=== PATIENT | female | born 1980 | race Caucasian/White ===

== ENCOUNTER 2020-01-25 10:00 | Observation (INO) | payer OTHER ==
[~2020-01-25] VITALS: Ht 169 cm; Wt 74.0 kg
[2020-01-25 10:35] VITALS: BP 100/62
[2020-01-25] MEDS ORDERED: PREN-217 PO (10:37)
== END 2020-01-25 11:55 | disposition home or self-care (01) ==
LOC: 4S 10:00
PROVIDERS: ADMIT Obstetrics & Gynecology; ATTEND Obstetrics & Gynecology
DX: O36.5930 Maternal care for other known or suspected poor fetal growth, third trimester, not applicable or unspecified (principal); O09.513 Supervision of elderly primigravida, third trimester; Z3A.37 37 weeks gestation of pregnancy
CPT/HCPCS: 59025; 99219

== ENCOUNTER 2020-02-04 14:00 | Observation (INO) | payer OTHER ==
[~2020-02-04] VITALS: Ht 167.6 cm; Wt 74.8 kg
[~2020-02-04 14:00] MED LIST: PREN-217 PO
[2020-02-04 14:33] VITALS: BP 102/64
[2020-02-04 17:55] LABS: COVID AG,FIA SOURCE NASOPHARYNGEAL
== END 2020-02-05 12:21 | disposition home or self-care (01) ==
LOC: 4S 14:00
PROVIDERS: ADMIT Obstetrics & Gynecology; ATTEND Obstetrics & Gynecology
DX: O09.513 Supervision of elderly primigravida, third trimester (principal); Z20.828 Contact with and (suspected) exposure to other viral communicable diseases; Z3A.39 39 weeks gestation of pregnancy
CPT/HCPCS: 59025; 87426; 99219

== ENCOUNTER 2020-02-08 12:10 | Inpatient (IN) | payer OTHER ==
[~2020-02-08] VITALS: Ht 169 cm; Wt 74.8 kg
[2020-02-08] MEDS ORDERED: METOCLOPRAMIDE HCL 5 MG/ML 2 ML VIAL IVP PRN (12:45)
[2020-02-08] MEDS ORDERED: METHYLERGONOVINE MALEATE 0.2 MG/ML VIAL IM PRN (12:45)
[2020-02-08] MEDS ORDERED: RINGERS SOLUTION,LACTATED 1,000 ML IV PRN (12:45)
[2020-02-08] MEDS ORDERED: CITRIC ACID/SODIUM CITRATE 30 ML SOLUTION UDCUP PO PRN (12:45)
[2020-02-08] MEDS ORDERED: FentaNYL CITRATE-PF 100 MCG/2 ML VIAL IVP PRN (12:45)
[2020-02-08] MEDS ORDERED: OXYTOCIN 30 UNITS/LACT RINGERS 500 ML IV ONE (12:45)
[2020-02-08] MEDS ORDERED: LIDOCAINE/PF 1% 30 ML VIAL INJ PRN (12:45)
[2020-02-08] MEDS: MISOPROSTOL 50 MCG TABLET PO SCH ×3 (13:28→23:49)
[2020-02-08 13:42] VITALS: BP 110/75
[2020-02-08] MEDS ORDERED: AMPICILLIN SODIUM 2 GM/NS 100 ML IV ONE (13:45)
[2020-02-08 14:28] LABS: BASOPHILS % (AUTO) 0.3 % (0.0-2.0); EOSINOPHILS % (AUTO) 0.4 % (1.0-6.0); HEMATOCRIT 39.8 % (36-46); HEMOGLOBIN 13.7 g/dL (12.0-16.0); MEAN CORPUSCULAR HGB CONC 34.3 G/dL (31.0-37.0); MEAN CORPUSCULAR VOLUME 102 fL (80-100); MONOCYTES # (AUTO) 0.9 K/uL (0.1-1.0); MONOCYTES % (AUTO) 11.4 % (2.0-9.0); NEUTROPHILS # (AUTO) 5.9 K/uL (1.8-7.7); NEUTROPHILS % (AUTO) 74.9 % (40.0-70.0); PLATELET COUNT (AUTO)-OB 229 K/uL (150-450); RED BLOOD CELL COUNT(AUTO) 3.91 MIL/uL (4.00-5.20); RED CELL DISTRIBUTION WIDTH 14.6 % (11.5-14.5)
[2020-02-08] MEDS: RINGERS SOLUTION,LACTATED 1,000 ML IV SCH ×2 (15:00→18:28)
[2020-02-08 15:01] LABS: COVID AG,FIA SOURCE NASOPHARYNGEAL
[2020-02-08] MEDS: AMPICILLIN SODIUM 1 GM/NS 50 ML IV SCH ×2 (19:00→22:55)
[2020-02-08] MEDS ORDERED: OXYGEN THERAPY IH SCH (20:00)
[2020-02-09] MEDS: AMPICILLIN SODIUM 1 GM/NS 50 ML IV SCH ×2 (03:16→07:20)
[2020-02-09] MEDS ORDERED: OXYTOCIN 30 UNITS/LACT RINGERS 500 ML IV PRN (04:30)
[2020-02-09] MEDS: RINGERS SOLUTION,LACTATED 1,000 ML IV SCH (11:02)
[2020-02-09] MEDS ORDERED: SODIUM CHLORIDE 0.9% 1,000 ML ONE (11:27)
[2020-02-09] MEDS ORDERED: RINGERS SOLUTION,LACTATED 1,000 ML IV ONE (11:27)
[2020-02-09] MEDS ORDERED: BUPIVACAINE HCL/DEX-WATER/PF 0.75% 2 ML AMP ONE (11:27)
[2020-02-09] MEDS ORDERED: MORPHINE SULFATE/PF 0.5 MG/ML 10 ML AMP IVP ONE (12:00)
[2020-02-09] MEDS ORDERED: 0.9% SODIUM CHLORIDE 10 ML VIAL IVP ONE (12:00)
[2020-02-09] MEDS ORDERED: EPHEDrine SULFATE 50 MG/ML VIAL IM ONE (12:00)
[2020-02-09] MEDS ORDERED: FentaNYL CITRATE-PF 100 MCG/2 ML VIAL IVP ONE (12:00)
[2020-02-09] MEDS ORDERED: ONDANSETRON HCL 4 MG/2 ML VIAL IVP ONE (12:00)
[2020-02-09] MEDS ORDERED: ONDANSETRON HCL 4 MG/2 ML VIAL IVP PRN (12:15)
[2020-02-09] MEDS ORDERED: FentaNYL CITRATE-PF 100 MCG/2 ML VIAL IVP PRN ×2 (12:15)
[2020-02-09] MEDS ORDERED: MEPERIDINE-PF 25 MG/ML VIAL IVP PRN (12:15)
[2020-02-09] MEDS ORDERED: DiphenhydrAMINE HCL 50 MG/ML VIAL IVP PRN (12:15)
[2020-02-09] MEDS ORDERED: NALBUPHINE HCL 10 MG/ML VIAL IVP PRN (12:15)
[2020-02-09] MEDS ORDERED: DEXAMETHASONE SOD PHOS 4 MG/ML VIAL IVP PRN (12:15)
[2020-02-09] MEDS ORDERED: ACETAMINOPHEN 1000 MG/ISO-OSM 100 ML IV ONE (12:56)
[2020-02-09] MEDS ORDERED: ACETAMINOPHEN/CODEINE 300-30 MG TABLET PO PRN ×2 (13:15)
[2020-02-09] MEDS ORDERED: LANOLIN 7 GM OINTMENT TP PRN (13:15)
[2020-02-09] MEDS ORDERED: DEXTROSE 5%-0.45% SODIUM CHL 1,000 ML IV ONE (14:09)
[2020-02-09] MEDS: DEXTROSE 5%-0.45% SODIUM CHL 1,000 ML IV SCH ×3 (14:22→21:42)
[2020-02-09] MEDS: KETOROLAC TROMETHAMINE 30 MG/ML VIAL IVP SCH (19:18)
[2020-02-09] MEDS ORDERED: OXYGEN THERAPY IH SCH (20:00)
[2020-02-09] MEDS: ACETAMINOPHEN 1000 MG/ISO-OSM 100 ML IV SCH (21:17)
[2020-02-10] MEDS: KETOROLAC TROMETHAMINE 30 MG/ML VIAL IVP SCH ×2 (00:55→06:34)
[2020-02-10] MEDS: DEXTROSE 5%-0.45% SODIUM CHL 1,000 ML IV SCH (01:03)
[2020-02-10] MEDS: ACETAMINOPHEN 1000 MG/ISO-OSM 100 ML IV SCH (05:37)
[2020-02-10] MEDS: MAGNESIUM HYDROXIDE SUSPENSION 30 ML UDCUP PO SCH ×2 (09:06→21:19)
[2020-02-10] MEDS: IBUPROFEN 800 MG TABLET PO SCH ×2 (13:29→21:19)
[2020-02-11] MEDS: IBUPROFEN 800 MG TABLET PO SCH ×4 (03:19→21:08)
[2020-02-11] MEDS: MAGNESIUM HYDROXIDE SUSPENSION 30 ML UDCUP PO SCH (21:00)
[2020-02-12] MEDS: IBUPROFEN 800 MG TABLET PO SCH ×2 (03:02→09:06)
== END 2020-02-12 09:35 | disposition home or self-care (01) | DRG 788 ==
LOC: OBSVTOIN 12:10 → 4S 12:10
PROVIDERS: ADMIT Obstetrics & Gynecology; ATTEND Obstetrics & Gynecology
PROC: 10D00Z1 Extraction of Products of Conception, Low, Open Approach (ICD-10-PCS; principal; 2020-02-09)
DX: O61.9 Failed induction of labor, unspecified (principal); Z20.828 Contact with and (suspected) exposure to other viral communicable diseases; Z3A.39 39 weeks gestation of pregnancy; Z37.0 Single live birth
CPT/HCPCS: 86850; 86900; 86901; 87426; J0131; J0290; J0690; J1885; J2274; J2405; J2590; J2765; J3010; J3490; J7030; J7120